=== PATIENT | male | born 1995 | race Caucasian/White ===

== ENCOUNTER 2017-01-22 21:24 | Emergency (ER) | payer BC, MEDICAID ==
[2017-01-22] MEDS ORDERED: Sodium Chloride 0.9% 1000 ML 1,000 ML IV STA (21:46)
[2017-01-22] MEDS ORDERED: TORAdol 30 mg Injection IV ONE (21:47)
[2017-01-22] MEDS ORDERED: Sodium Chloride 0.9% 1000 ML 1,000 ML ONE (21:52)
[2017-01-22] MEDS ORDERED: TORAdol 30 mg Injection ONE (21:52)
[2017-01-22 21:57] LABS: BASOPHIL % 0.3 % (0.0-0.4); Granulocytes % 45.8 % (36.0-66.0); Mean Corpuscular Hemoglobin 30.1 pg (26-32); Monocytes % 12.9 % (0.0-12.0); Platelet Count 233 K/mm3 (150-450); Red Blood Count 4.81 M/mm3 (4.1-5.6); Red Cell Distribution Width 12.2 % (11.5-14.0); White Blood Count 5.8 K/mm3 (4.0-10.5)
[2017-01-22 22:05] LABS: INR 1.07 (0.8-3.0); PROTIME 12.1 SECONDS (8.83-12.87)
[2017-01-22 22:07] LABS: ANION GAP 15.6 MEQ/L (5-15); BLOOD UREA NITROGEN 12 mg/dL (9-20); CHLORIDE 103 mEq/L (98-107); Carbon Dioxide 26.2 mEq/L (21-32); Glucose 105 MG/DL (70-110); Potassium 3.3 mEq/L (3.5-5.1); SODIUM 142 mEq/L (136-145)
[2017-01-22] MEDS ORDERED: Klor Con 10 MEQ PO ONE ×2 (22:17→22:22)
--- NOTE | 2017-01-22 22:54 | ERPHSYRPT ---
- History of Present Illness Time Seen by Provider: 01/22/17 21:34 Historian: patient Exam Limitations: clinical condition Patient Subjective Stated Complaint: pt states he started having sharp pain in his lt side at approx 3pm. Triage Nursing Assessment: pt alert and oriented, asnwers questions approp. pt ambulatory with steady gait. respirations nonlabored, lungs cta. abd osft and tender to lt upper quad. bowel sounds present in all 4 quads. pt reports pain increases with deep breath and laughing. Physician History: PATIENT COMPLAINS OF LEFT LOWER RIB PAINS IN CHEST FOR THE PAST SEVERAL HOURS. STATES PAIN IS EXACERBATED BY DEEP INSPIRATION AND LAUGHING. DENIES FEVER, COUGH , PALPITATIONS OR DYSPNEA. Timing/Duration: today Activities at Onset: none Quality: sharpness Location: other (LEFT LATERAL CHEST WALL) Severity of Pain-Max: moderate Severity of Pain-Current: moderate Modifying Factors: Improves With: breathing, change in position Associated Symptoms: denies symptoms Prior Chest Pain/Cardiac Workup: no prior chest pain Nitro Today/Relief: no nitro taken today Aspirin Treatment Today: no aspirin today Allergies/Adverse Reactions: No Known Drug Allergies Allergy (Verified 01/22/17 21:39) Home Medications: No Home Meds 02/01/13 [History] Hx Tetanus, Diphtheria Vaccination/Date Given: Yes Hx Influenza Vaccination/Date Given: No Hx Pneumococcal Vaccination/Date Given: No Immunizations Up to Date: Yes - Review of Systems Constitutional: No Fever, No Chills Eyes: No Symptoms Ears, Nose, & Throat: No Symptoms Respiratory: No Symptoms, No Cough, No Dyspnea Cardiac: Chest Pain, No Edema, No Syncope Abdominal/Gastrointestinal: No Abdominal Pain, No Nausea, No Vomiting, No Diarrhea Genitourinary Symptoms: No Symptoms, No Dysuria Musculoskeletal: No Symptoms, No Back Pain, No Neck Pain Skin: No Symptoms, No Rash Neurological: No Dizziness, No Focal Weakness, No Sensory Changes Psychological: No Symptoms Endocrine: No Symptoms All Other Systems: Reviewed and Negative - Past Medical History Pertinent Past Medical History: No - Past Surgical History Past Surgical History: Yes Musculoskeletal: Orthopedic Surgery Other Surgical History: rt arm - Social History Smoking Status: Never smoker Exposure to second hand smoke: Yes Drug Use: none Patient Lives Alone: No Significant Family History: no pertinent family hx - Nursing Vital Signs Nursing Vital Signs: Initial Vital Signs Temperature 98.0 F Temperature Source Oral Pulse Rate 76 Respiratory Rate 16 Blood Pressure [Right Arm] 105/57 Pain Intensity 5 - Physical Exam General Appearance: no apparent distress, alert Eye Exam: PERRL/EOMI, eyes nml inspection Ears, Nose, Throat Exam: normal ENT inspection, moist mucous membranes Neck Exam: normal inspection, non-tender, supple, full range of motion Respiratory Exam: normal breath sounds, chest tenderness (TENDERNESS LEFT LOWER RIBS 8TH TO 11TH RIBS), lungs clear, No respiratory distress Cardiovascular Exam: regular rate/rhythm, normal heart sounds Gastrointestinal/Abdomen Exam: soft, No tenderness, No mass Back Exam: normal inspection, No CVA tenderness, No vertebral tenderness Extremity Exam: normal inspection, normal range of motion Neurologic Exam: alert, oriented x 3, cooperative, normal mood/affect, sensation nml, No motor deficits Skin Exam: normal color, warm, dry SpO2 Interpretation: normal SpO2: 97 Oxygen Delivery: Room Air - Course EKG Interpreted by Me: RATE, Sinus Rhythm (RATE 82) - Radiology Exams Chest X-ray Interpretation: Interpreted by me, Negative, No Infiltrates Ordered Tests: Active Orders 24 hr Category Date Time Status Clean Catch Urine Specimen STAT Care 01/22/17 21:41 Active EKG-ER Only STAT Care 01/22/17 21:47 Active IV Insertion STAT Care 01/22/17 21:40 Active Pulse Oximetry (ED) STAT Care 01/22/17 21:47 Active CHEST 1 VIEW (PORTABLE) Stat Exams 01/22/17 22:32 Taken BMP Stat Lab 01/22/17 21:35 Completed CBC W DIFF Stat Lab 01/22/17 21:35 Completed D-DIMER QUANTITATION Stat Lab 01/22/17 21:35 Completed PROTIME WITH INR Stat Lab 01/22/17 21:35 Completed TROPONIN Q3H Lab 01/22/17 21:35 Completed TROPONIN Q3H Lab 01/23/17 01:00 Ordered TROPONIN Q3H Lab 01/23/17 04:00 Ordered TROPONIN Q3H Lab 01/23/17 07:00 Ordered TROPONIN Q3H Lab 01/23/17 10:00 Ordered Medication Summary Generic Name Dose Route Start Last Admin Trade Name Freq PRN Reason Stop Dose Admin Sodium Chloride 1,000 mls @ 200 mls/hr 01/22/17 21:46 01/22/17 21:55 Sodium Chloride 0.9% 1000 Ml IV 01/23/17 02:45 200 mls/hr .Q5H STA Administration Discontinued Medications Generic Name Dose Route Start Last Admin Trade Name Vinny PRN Reason Stop Dose Admin Sodium Chloride Confirm 01/22/17 21:52 Sodium Chloride 0.9% 1000 Ml Administered 01/22/17 21:53 Dose 1,000 mls @ ud .ROUTE .STK-MED ONE Ketorolac Tromethamine 30 mg 01/22/17 21:47 01/22/17 21:55 Toradol 30 Mg Injection IV 01/22/17 21:48 30 mg STAT ONE Administration Ketorolac Tromethamine Confirm 01/22/17 21:52 Toradol 30 Mg Injection Administered 01/22/17 21:53 Dose 30 mg .ROUTE .STK-MED ONE Potassium Chloride 40 meq 01/22/17 22:17 01/22/17 22:26 Klor Con 10 Meq PO 01/22/17 22:18 40 meq STAT ONE Administration Potassium Chloride Confirm 01/22/17 22:22 Klor Con 10 Meq Administered 01/22/17 22:23 Dose 40 meq PO .STK-MED ONE Lab/Rad Data: Laboratory Result Diagrams 01/22/17 21:35 01/22/17 21:35 Laboratory Results 01/22/17 01/22/17 01/22/17 Range/Units 21:35 21:35 21:35 WBC (4.0-10.5) K/mm3 RBC (4.1-5.6) M/mm3 Hgb (12.5-18.0) gm/dl Hct (42-50) % MCV (78-100) fl MCH (26-32) pg MCHC (32-36) g/dl RDW (11.5-14.0) % Plt Count (150-450) K/mm3 MPV (6-9.5) fl Gran % (36.0-66.0) % Lymphocytes % (24.0-44.0) % Monocytes % (0.0-12.0) % Eosinophils % (0.00-5.0) % Basophils % (0.0-0.4) % Basophils # (0-0.4) INR 1.07 (0.8-3.0) D-Dimer < 200 (0-500) ng/mL Sodium 142 (136-145) mEq/L Potassium 3.3 L (3.5-5.1) mEq/L Chloride 103 (98-107) mEq/L Carbon Dioxide 26.2 (21-32) mEq/L Anion Gap 15.6 H (5-15) MEQ/L BUN 12 (9-20) mg/dL Creatinine 0.84 (0.55-1.30) mg/dl Estimated GFR > 60 ML/MIN Glucose 105 (70-110) MG/DL Calcium 9.8 (8.5-10.1) mg/dL Troponin I < 0.017 (0.000-0.056) ng/ml 01/22/17 Range/Units 21:35 WBC 5.8 (4.0-10.5) K/mm3 RBC 4.81 (4.1-5.6) M/mm3 Hgb 14.5 (12.5-18.0) gm/dl Hct 40.9 L (42-50) % MCV 85.0 (78-100) fl MCH 30.1 (26-32) pg MCHC 35.5 (32-36) g/dl RDW 12.2 (11.5-14.0) % Plt Count 233 (150-450) K/mm3 MPV 10.0 H (6-9.5) fl Gran % 45.8 (36.0-66.0) % Lymphocytes % 40.0 (24.0-44.0) % Monocytes % 12.9 H (0.0-12.0) % Eosinophils % 1.0 (0.00-5.0) % Basophils % 0.3 (0.0-0.4) % Basophils # 0.02 (0-0.4) INR (0.8-3.0) D-Dimer (0-500) ng/mL Sodium (136-145) mEq/L Potassium (3.5-5.1) mEq/L Chloride (98-107) mEq/L Carbon Dioxide (21-32) mEq/L Anion Gap (5-15) MEQ/L BUN (9-20) mg/dL Creatinine (0.55-1.30) mg/dl Estimated GFR ML/MIN Glucose (70-110) MG/DL Calcium (8.5-10.1) mg/dL Troponin I (0.000-0.056) ng/ml - Progress Progress: improved Progress Note: 01/22/17 22:53 TROPONIN, AND DDIMER NEGATIVE, PAIN IMPROVED AFTER IV TORADOL 30MG Counseled pt/family regarding: lab results, diagnosis, need for follow-up, rad results - Departure Time of Disposition: 23:00 Departure Disposition: Home Clinical Impression: ACUTE COSTOCHONDRITIS Condition: Stable Critical Care Time: No Additional Instructions: TORADOL 10MG EVERY 6 HOURS NEEDED FOR MILD TO MODERATE PAIN. TYLENOL #3 EVERY 4 HOURS FOR SEVERE PAIN. CONSULT YOUR FAMILY PHYSICIAN FOR FOLLOWUP IN 1 WEEK. Prescriptions: Codeine Phosphate/APAP #3 [Tylenol #3 Tablet] 1 tab PO Q4H PRN PRN #15 tablet PRN Reason: Pain Ketorolac Tromethamine [Toradol] 10 mg PO Q6HPRN PRN #20 tablet PRN Reason: Mild To Moderate Pain
[2017-01-22 23:06] VITALS: BP 109/58; PULSE 84; O2SAT 98
--- NOTE | 2017-01-23 08:36 | XRAY ---
Indication: Left-sided chest pain. Comparison: None Portable chest demonstrates normal heart, lungs, and bony thorax.
== END 2017-01-22 23:11 | disposition home or self-care (01) ==
LOC: ED 21:24
DX: M94.0 Chondrocostal junction syndrome [Tietze] (principal); R07.89 Other chest pain
CPT/HCPCS: 36000; 36415; 71010; 80048; 84484; 85025; 85379; 85610; 93005; 96360; 96374; 99284; J1885; A9270-GY

== ENCOUNTER 2019-03-26 11:07 | Emergency (ER) | payer BC ==
[2019-03-26 11:20] VITALS: O2SAT 97
--- NOTE | 2019-03-26 12:04 | ERPHSYRPT ---
- History of Present Illness Source: patient Exam Limitations: no limitations Patient Subjective Stated Complaint: Stepped off of a trailor and into a hole and twisted his right ankle Triage Nursing Assessment: Pt brought into the ER via a wheelchair, right lateral ankle swollen and bruising, pulses normal, capillary refill normal, doesn't appear to be in any distress Physician History: Pt is a 23 y/o male with a recent history of rolling his R ankle, getting out of a trailer. Today his ankle is swollen and there is severe pain near the R malleolus. No other complaint. Method of Injury: twisted Occurred: yesterday Quality: sharpness, throbbing Severity of Pain-Max: moderate Severity of Pain-Current: moderate Lower Extremities Pain: ankle: right (pain with rotation and weight baring) Modifying Factors: Improves With: pain medication Associated Symptoms: none Allergies/Adverse Reactions: No Known Drug Allergies Allergy (Verified 03/26/19 11:19) Home Medications: No Reportable Medications [No Reported Medications] 03/26/19 [History] Hx Tetanus, Diphtheria Vaccination/Date Given: No Hx Influenza Vaccination/Date Given: No Hx Pneumococcal Vaccination/Date Given: No - Review of Systems Constitutional: No Fever, No Chills Musculoskeletal: Arthralgias (OF the R ankle), Joint Swelling (OF the R ankle) Skin: No Rash Neurological: No Dizziness, No Focal Weakness, No Sensory Changes - Past Medical History Pertinent Past Medical History: No - Past Surgical History Past Surgical History: Yes Musculoskeletal: Orthopedic Surgery Other Surgical History: rt arm - Social History Smoking Status: Former smoker Exposure to second hand smoke: Yes Drug Use: none Patient Lives Alone: Yes Significant Family History: no pertinent family hx - Nursing Vital Signs Nursing Vital Signs: Initial Vital Signs Temperature 98.6 F 03/26/19 11:10 Pulse Rate 93 H 03/26/19 11:10 Blood Pressure 140/83 03/26/19 11:10 O2 Sat by Pulse Oximetry 97 03/26/19 11:10 Pain Scale Pain Intensity 4 - Physical Exam General Appearance: alert Ankle Exam: right ankle: limited range of motion, pain, soft tissue tenderness, swelling, left ankle: non-tender, normal inspection, normal range of motion SpO2: 97 - Course Nursing assessment & vital signs reviewed: Yes - Radiology Exams Right Ankle X-ray Interpretation: Interpreted by me (No acute fracture. There is soft tissue swelling) Ordered Tests: Active Orders 24 hr Category Date Time Status ANKLE (3 VIEWS) Stat Exams 03/26/19 11:44 Taken - Progress Progress: unchanged Progress Note: 03/26/19 12:06 Pt was seen and examined. He has no problem with extention and flexion of the R foot, but has pain eith rotation of the ankle, and with palpation. XRs did not show any fracture. Pt should ice, and elevate the leg, and use NSAIDs for pain. F/U with PCP. Will see patient in: office Counseled pt/family regarding: need for follow-up - Departure Departure Disposition: Home Clinical Impression: Right ankle sprain Condition: Stable Critical Care Time: No Referrals: DOCTOR,NO FAMILY [Primary Care Provider] - Additional Instructions: Ice the ankle, elevate and use Ibuprofen for the pain. F/U with PCP.
[2019-03-26 12:12] VITALS: BP 123/112; PULSE 74
--- NOTE | 2019-03-26 19:19 | XRAY ---
Indication: Pain following twisting injury. Comparison: None 3 views of the right ankle demonstrates mild anterior lateral soft tissue swelling. No other bony, articular, or soft tissue abnormalities.
== END 2019-03-26 12:16 | disposition home or self-care (01) ==
LOC: ED 11:07
DX: S93.401A Sprain of unspecified ligament of right ankle, initial encounter (principal); X50.1XXA Overexertion from prolonged static or awkward postures, initial encounter; Y93.89 Activity, other specified
CPT/HCPCS: 73610; 99283